=== PATIENT | female | born 1980 | race Caucasian/White ===

== ENCOUNTER 2017-07-10 12:30 | Emergency (ER) | payer OTHER, SELFPAY ==
[2017-07-10] VITALS (8 sets, daily range): BP systolic 108–157; BP diastolic 71–99; PULSE 63–81; RESP 15–23; TEMP 36.6; O2SAT 97–100; BMI 45.8
--- NOTE | 2017-07-10 12:38 | RAD_ITS ---
STUDY: X-RAY - RIGHT WRIST REASON FOR EXAM: Female, 37 years old. Right wrist pain after fall TECHNIQUE: 3 view(s) of the wrist were obtained. COMPARISON: None. FINDINGS: Comminuted distal radius fracture with mild angulation and no significant displacement. Soft tissue swelling is noted RAD/Wrist min 3 Views IMPRESSION: As above Electronically Signed: Bowen Gilbert DO at 13:21 EST Tel , Service support ,
--- NOTE | 2017-07-10 12:40 | ED.DCSUM_ITS ---
- ER Visit Summary Date of Service: 07/10/17 Chief Complaint: Right wrist trauma History of Present Illness: The patient is a 37 F presenting with acute onset right wrist pain after falling onto her outstretched right upper extremity when she tripped outside. She denies any other injuries. Pain was sudden onset and moderate in severity. She is left-hand dominant. She denies paresthesias. Physical Examination: She has tenderness on palpation of her right distal radius. The skin is intact. Normal distal neurovascular examination Test Results: Plain films revealed a dorsally displaced distal radius fracture that was mildly angulated. She had a normal distal neurovascular examination. Emergency Department Course and Treatment: The case was discussed with Dr. Orion Akers who reviewed the images and recommended attempt at reduction and follow-up on Tuesday for surgical planning. We discussed options including a hematoma block and she did not want a hematoma block and asked to be procedurally sedated. The risks and benefits of this were discussed and written informed consent was obtained. The risk of nerve damage and also an incomplete reduction were discussed. She was then sedated using propofol and a closed reduction was performed but I was unable to get complete reduction as the fracture fragment appeared to be getting caught on the more proximal component. The repeat images reveal better alignment on the repeat images but still not complete. Her pain did improve and she still has a normal distal neurovascular examination after the splint was placed and she was observed for an hour. Treatment Plan: Follow-up with orthopedics in 2 days, return if worse Disposition: Home in stable condition Impression: Initial encounter for dorsally displaced right distal radius fracture, closed after mechanical fall This note was generated with [employer] dictation software. It may contain incorrect words, spelling, and punctuation that were not noted in review of the chart prior to signing ED Disposition - Plan for ED Patient: Chief Complaint: Upper Extremity Injury Instructions: ED Fx Colles Wrist Redu Requ Prescriptions: Oxycodone [Oxyir] 5 mg PO Q4H PRN PRN 3 Days #18 tablet PRN Reason: Pain Referrals: Orion Akers DO [STAFF PHYSICIAN] - 2 Days (on Tuesday)
[2017-07-10] MEDS: oxyCODONE 5 MG Tablet PO ×2 (12:49→15:21)
--- NOTE | 2017-07-10 13:57 | RAD_ITS ---
STUDY: X-RAY - RIGHT WRIST REASON FOR EXAM: Female, 37 years old. Post reduction TECHNIQUE: 2 view(s) of the wrist were obtained. COMPARISON: Plain films earlier FINDINGS: No significant change in distal radius fracture with mild angulation. Overlying cast in place RAD/Wrist 2 Views IMPRESSION: As above Electronically Signed: Bowen Gilbert DO at 15:33 EST Tel , Service support ,
--- NOTE | 2017-07-10 13:59 | RAD_ITS ---
STUDY: X-RAY - RIGHT WRIST REASON FOR EXAM: Female, 37 years old. Closed Reduction TECHNIQUE: 2 view(s) of the wrist were obtained. COMPARISON: None. FINDINGS: Fluoroscopy images obtained. Distal radius fracture is noted with mild angulation. No significant change from earlier RAD/Wrist 2 Views IMPRESSION: As above Electronically Signed: Bowen Gilbert DO at 15:37 EST Tel , Service support ,
[2017-07-10] MEDS: Propofol 200 MG/20 ML Vial IV BOLUS (14:30)
== END 2017-07-10 15:22 | disposition home or self-care (01) ==
PROVIDERS: Emergency Provider Emergency Medicine; Family Provider Family Medicine; PCP Family Medicine
DX: S52.501A Unspecified fracture of the lower end of right radius, initial encounter for closed fracture (principal); W01.0XXA Fall on same level from slipping, tripping and stumbling without subsequent striking against object, initial encounter; Y93.9 Activity, unspecified; Y92.9 Unspecified place or not applicable; Y99.9 Unspecified external cause status
CPT/HCPCS: 25605; 73100; 73110; 76000; 96374; 99283; J7030; A4216

== ENCOUNTER → 2017-07-16 06:46 | Outpatient (CLI) | payer OTHER, SELFPAY ==
[2017-07-10 13:43] VITALS: BP 137/88; BP 145/96
[2017-07-12 12:43] VITALS: BP 124/84; BMI 45.8
--- NOTE | 2017-07-16 06:54 | CT_ITS ---
STUDY: CT RIGHT WRIST REASON FOR EXAM: Female, 37 years old. Fracture RADIATION DOSAGE (If Supplied By Facility): CTDI vol = (24.58) mGy, DLP = (474.56 mGycm) TECHNIQUE: The patient was scanned in a multi detector CT scanner. High resolution transaxial imaging was performed. Sagittal and coronal images were reconstructed. Individualized dose optimization techniques were used for this CT. COMPARISON: X-ray 07/10/2017 FINDINGS: There is comminuted fracture at the distal radius. There is posterior displacement one third shaft width. There is mild involvement of the dorsal articular surface (image 33, 32, 31/63 sagittal recon). There is no osseous destruction. The ulna is intact. The carpal bones are intact. The joint spaces are well-maintained. There is no periarticular soft tissue mass. CT/Extremity Upper without Contra IMPRESSION: Comminuted fracture of the distal radius with dorsal displacement and involvement of the dorsal articular surface Electronically Signed: Silverio Akbar MD at 11:34 EST Tel , Service support ,
== END ==
PROVIDERS: Family Provider Family Medicine; PCP Family Medicine; Visit Provider Orthopaedic Surgery
DX: S52.501A Unspecified fracture of the lower end of right radius, initial encounter for closed fracture (principal); X58.XXXA Exposure to other specified factors, initial encounter; Y93.9 Activity, unspecified; Y92.9 Unspecified place or not applicable; Y99.9 Unspecified external cause status
CPT/HCPCS: 73200

== ENCOUNTER 2017-07-20 12:15 | Day surgery (SDC) | payer OTHER, SELFPAY ==
[2017-07-10 13:43] VITALS: BP 137/88; BP 145/96
[2017-07-12 12:43] VITALS: BP 124/84; BMI 45.8
[2017-07-20] VITALS (11 sets, daily range): BP systolic 128–145; BP diastolic 55–102; PULSE 61–95; RESP 16–20; TEMP 36.4–36.9; O2SAT 90–100; BMI 47.8
[2017-07-20 12:41] LABS: Hematocrit 33.1 % (37-47); Hemoglobin 10.2 g/dl (12.0-15.0); Mean Corp Hgb Conc 30.8 g/gl (32-36); Mean Corpuscular Hgb 26.4 pg (27.0-32.0); Mean Corpuscular Volume 85.5 fL (81-99); Mean Platelet Vol. 10.5 fl (6.2-12.0); Platelet Count 289 K/mm3 (150-450); RBC Distribution Width CV 15.2 % (11.6-14.6); RBC Distribution Width SD 46.3 fl (35.1-43.9); Red Blood Count 3.87 M/mm3 (4.2-5.4); White Blood Count 5.3 K/mm3 (4.4-11.0)
[2017-07-20 12:45] LABS: Scan Indicated on CBC? Y/N NO
[2017-07-20 12:48] LABS: International Normalized Ratio 1.1; Partial Thromboplast Time 30.7 Seconds (24.1-36.2); Prothrombin Time (Protime)PT. 13.4 SECONDS (11.7-14.9)
[2017-07-20 12:58] LABS: AST(SGOT) 19 U/L (15-37); Alanine Aminotransfer ALT/SGPT 34 U/L (13-56); Albumin, Serum 3.5 g/dL (3.2-5.0); Alkaline Phosphatase 87 U/L (45-117); Bilirubin, Direct 0.11 mg/dL (0.00-0.30); Globulin 4.2 g/dL (2.2-4.2); Protein, Total 7.7 g/dL (6.4-8.2)
[2017-07-20] MEDS: Cefazolin 2 GM in 0.9% Normal Saline 100 ML IV (15:45)
--- NOTE | 2017-07-20 15:51 | PCM.DC.ORTHO ---
Discharge Diet: No Restrictions - leave dressing intact; ice,elevate and move fingers as much as tolerated, call with increased pain, numbness, tingling, or if other issues arise, follow up in 2 weeks in office Discharge Activity: May Not Drive May shower in (days): 1 Ice area for (Minutes): 20 - Every hour while awake. Weight Bearing Status: Weight bearing as tolerated Keep extremity elevated above heart level: Operative Extremity Call your doctor if your incision/area has: Continuous Slow Oozing, Sudden Increased Bleeding, Increased Pain/ Swelling, Increased Redness, Foul Smelling Discharge Call your doctor if you observe: Fever of 101 or Higher, Coldness, Increased Pain, Numbness or Tingling, Change in Color, Calf discomfort Allergies/Adverse Reactions: Allergies No Known Allergies Allergy (Verified 07/18/17 08:08) Medications to take at Discharge Zolpidem Tartrate [Ambien] 10 mg PO QHS 10/20/16 oxycodone-acetaminophen 5 mg-325 mg tablet 2 tab PO Q6H PRN 7 Days #56 tab 07/14/17 l-Norgest/E.estradiol-E.estrad [Seasonique 0.15-0.03-0.01 Tab] 1 each PO DAILY 07/18/17 Oxycodone HCl/Acetaminophen [Percocet 5/325] 1 - 2 tablet PO Q6H PRN PRN 5 Days #30 tablet 07/20/17 The following prescriptions were given: Oxycodone HCl/Acetaminophen [Percocet 5/325] 1 - 2 tablet PO Q6H PRN PRN 5 Days #30 tablet PRN Reason: Pain Primary Care Physician: Joseph Sánchez MD [Primary Care Provider] - Please Follow Up With: Hali Freeman, - [phone]
--- NOTE | 2017-07-20 15:52 | OP.PCM_ITS ---
Problem List (1) Intra-articular fracture of distal end of radius with volar angulation Status: Acute Report of Operation Date of Procedure: 07/20/17 Pre-Operative Diagnosis: right distal radius intraarticular fracture Post-Operative Diagnosis: same Surgery/Procedure Performed:: orif right intraarticular distal radius Type of Anesthesia:: General Anesthesiologist: Jose Daniel Estimated Blood Loss (mL): minimal Fluids Replaced: 1200ml lr Description of Procedure: Note Patient is a 37-year-old female who fell onto right outstretched hand. Patient immediate pain and deformity was seen in the emergency room x-rays showed a discharge to distal radius fracture CT scan confirmed a intra-articular extension dorsally. This and discussion with family whether or not to proceed with closed reduction casting versus pinning versus plating. Family elected to proceed with right distal radius reduction internal fixation. Risks benefits and alternatives surgery discussed with patient. Risks including but not limited to blood loss, blood clot, infection, neurovascular injury, failure procedure, loss of life and loss of limb. Patient is aware would like proceed with right distal radius repair is indicated. Operative note Patient seen and examined preoperative holding area. Right hand was. Patient was brought to the operating room placed supine on the operating table. Sign, anesthesia, antibiotics were administered. Right arm was prepped and draped in usual sterile fashion with tourniquet around her upper arm. The marked out our incision for our distal radius fracture fixation. Palpated her FCR and the incision was made on top of that. Right arm was elevated exsanguinated and pressure was raised to pressure of 250 torr. Timeout was performed. We then used a 15 blade cut the skin dissect down with tenotomy syllable of the FCR fascia FCR fascia was then released and weeks and dissected down with tenotomy syllable of the pronator quadratus pronator quadratus was released sharply from its radial edge with a Tar Heel elevator. We then were able to visualize our fracture site. We then used combination of a Tar Heel and a dental pick to remove any callus that was there and irrigated with copious amounts of sterile saline. We then reduced the fracture picked out our plate. We placed a 2.4 LCDCP plate and then placed K wires across the plate and fixating it in an appropriate proximal distal and medial lateral planes. We then placed 1 screw was a 14 mm to 4 screw proximally to fixate the plate to the bone and then placed in place and drilled accordingly distal screws into the radial styloid as well as into the ulnar aspect of the distal radius. These were initially placed 2 cortical screws and then refill the remaining 4 screws with locking screws. We then moved back to her proximal screw and placed our remaining 214 mm 2.4 cortical screws in the proximal plate. Please note that throughout the case we took multiple fluoroscopy images in both AP lateral pronated and 20? AP lateral planes to ensure that we had good reduction of the fracture site and no intra-articular extension of the screws which we did not have. The incision was irrigated with copious amounts of sterile saline. The pronator quadratus was placed on placed on top of the plate the skin with subcutaneous was closed with 2-0 Vicryl and the skin with running 4-0 Monocryl. Dressings were applied. The tourniquet was deflated for total working time of 1 hour. He was transferred to the recovery room in stable condition. The patient tolerated procedure well there are no comp occasions. Next Postoperative note Nonweightbearing right upper extremity Hospital has pharmacy has prescriptions next Call with increased numbness tingling or further issues arise this was discussed at length with family Follow-up in 2 weeks next Call with concerns This note was generated with [employer] dictation software. It may contain incorrect words, spelling, and punctuation that were not noted in checking the note before signing. We placed 2.4 variable angle locking screws placed 112 mm, 140 mm, 180 mm, and 122 mm screws we placed to 2.4 cortical screws there were 22 mm in length distally and proximally in the plate we placed to 14 mm 2.7 cortical screws and 116 mm cortical screw.
--- NOTE | 2017-07-20 16:05 | RAD_ITS ---
STUDY: X-RAY - RIGHT WRIST REASON FOR EXAM: Female, 37 years old. Fracture TECHNIQUE: 2 view(s) of the wrist were obtained. COMPARISON: 07/10/2017 FINDINGS: There is fixation at the distal radius. RAD/Wrist min 3 Views IMPRESSION: ORIF distal radius Electronically Signed: Silverio Akbar MD at 21:09 EST Tel , Service support ,
[2017-07-20] MEDS: Mupirocin Ointment 22gm Tube 1 APPLIC (17:12)
[2017-07-20] MEDS: HYDROcodone Bitartrate/Apap 5/325 Tablet PO (19:02)
== END 2017-07-20 20:12 | disposition home or self-care (01) ==
LOC: SDC 12:16 → AC 12:17
PROVIDERS: Anesthesiology; Family Provider Family Medicine; PCP Family Medicine; Visit Provider Orthopaedic Surgery
PROC: (CPT 25608; principal; 2017-07-20 13:50)
DX: S52.571A Other intraarticular fracture of lower end of right radius, initial encounter for closed fracture (principal); W01.0XXA Fall on same level from slipping, tripping and stumbling without subsequent striking against object, initial encounter; Y93.01 Activity, walking, marching and hiking; Y92.9 Unspecified place or not applicable; Y99.9 Unspecified external cause status; D64.9 Anemia, unspecified; Z79.899 Other long term (current) drug therapy; Z98.84 Bariatric surgery status; Z98.51 Tubal ligation status
CPT/HCPCS: 25608; 73110; 76000; 80076; 85027; 85610; 85730; J7120; J2405

== ENCOUNTER → 2017-08-02 12:54 | Outpatient (CLI) | payer OTHER, SELFPAY ==
--- NOTE | 2017-08-02 12:58 | RAD_ITS ---
STUDY: X-RAY - RIGHT WRIST REASON FOR EXAM: Fracture follow-up. TECHNIQUE: 3 view(s) of the wrist were obtained. COMPARISON: Fluoroscopic images 07/20/2017. FINDINGS: There is an orthopedic plate and screws transfixing a distal radial fracture in anatomic alignment and position. Normal radiocarpal articulation. Normal distal radioulnar articulation. Normal carpal bones. Normal carpal articulations. Normal carpometacarpal articulation of the thumb. Normal second through fifth carpometacarpal articulations. Normal visualized metacarpal bones. The soft tissue structures are unremarkable. RAD/Wrist min 3 Views IMPRESSION: ORIF of right distal radial fracture. Electronically Signed: Sina Mejia MD at 13:16 EST Tel , Service support ,
== END ==
PROVIDERS: Family Provider Family Medicine; PCP Family Medicine; Visit Provider Orthopaedic Surgery
DX: S52.579A Other intraarticular fracture of lower end of unspecified radius, initial encounter for closed fracture (principal); X58.XXXA Exposure to other specified factors, initial encounter; Y93.9 Activity, unspecified; Y92.9 Unspecified place or not applicable; Y99.9 Unspecified external cause status
CPT/HCPCS: 73110

== ENCOUNTER → 2017-09-08 08:05 | Outpatient (CLI) | payer OTHER, SELFPAY ==
--- NOTE | 2017-09-08 08:05 | RAD_ITS ---
STUDY: X-RAY - RIGHT WRIST REASON FOR EXAM: Postop. TECHNIQUE: 3 view(s) of the wrist were obtained. COMPARISON: Radiographs 08/02/2017. FINDINGS: There is an orthopedic plate and screws transfixing a distal radial fracture in anatomical alignment and position. Normal radiocarpal articulation. Normal distal radioulnar articulation. Normal carpal bones. Normal carpal articulations. Normal carpometacarpal articulation of the thumb. Normal second through fifth carpometacarpal articulations. Normal visualized metacarpal bones. The soft tissue structures are unremarkable. RAD/Wrist min 3 Views IMPRESSION: ORIF of distal radial fracture without interval change. Electronically Signed: Sina Mejia MD at 8:55 EDT Tel , Service support ,
== END ==
PROVIDERS: Family Provider Family Medicine; PCP Family Medicine; Visit Provider Orthopaedic Surgery
DX: S52.579A Other intraarticular fracture of lower end of unspecified radius, initial encounter for closed fracture (principal); X58.XXXA Exposure to other specified factors, initial encounter; Y93.9 Activity, unspecified; Y92.9 Unspecified place or not applicable; Y99.9 Unspecified external cause status
CPT/HCPCS: 73110

== ENCOUNTER 2017-11-03 13:00 | Outpatient (RCR) | payer OTHER, SELFPAY ==
--- NOTE | 2017-08-02 15:24 | HP.OTEVAL ---
Patient's Visit Information TAMELA HERNANDEZ is a 37 year old F, referred to Occupational Therapy by Hali Freeman DO,, with a diagnosis of ORIF R wrist. Date of Evaluation: 08/02/17 Occupational Therapist: Sara Faust - Subjective Subjective: Arrived as walk-over Pt. from [facility]. Tamela noted that she fell on ice while at [employer]. Noted she recently, prior to session, had cast removed. 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 Notes second time breaking R wrist and she is R hand dominant. - Pain Right Wrist Unrated Pain Intensity Range: Unrated - Objective Objective/Observation: Edema present in fingers. Decreased ROM and strength in R wrist. Scar healing and slight opening and cover with steri strips at this time. - ROM Wrist: flex R 0-25, L 0-87; ext R 0-0, L 0-57 MP: R 2-5th 9-49, 7-42, 10-52, 7, 36; L WFL PIP: R 2-5th 10-49, 12-53, -1, 61, L -11-75; L WFL - Strength Vocational Rehabilitation Counselor: R unable at this time; L 71 - Edema Proximal Phalanx: slight edema present - Sensation Sensation Comments: WFL; denies numbness or tingling at this time. - Goals Goal:: Pt. to increase R credit collections manager to that of L hand 4/5 trials 80% of the time to promote increased ability to manipulate FMC and self-care tasks by d/c. Goal:: Pt. R wrist and hand to be WFL as compared to L wrist 2/3 trials 75% of the time by d/c. Goal:: Pt. to have no more than 1/10 pain when completing ADL/IADls 4/5 trials 80% of the time to promote increased (I) and ability to return to PLOF by d/c. Goal:: Pt. to be (I) to return to all ADL/IADls 4/5 trials 80% of the time to promote increased (i) and decrease need for assistance by d/c. Goal:: Pt. to be (I) to complete HEP to promote ROM and strength 4/5 trials 8-% of the time to promote increased (I) and ability to return to PLOF by d/c. Goal:: Pt. to be mod I to complete splint schedule (24 hours and will taper off with healing time) as well as skin integrity issues 4/5 trials 80% of the time by d/c. - Rehabilitation General Assessment: Pt., Tamela, arrived from [facility]. Presents with decreased ROM, strength, and ability to complete FMC, b hand coordinationa nd manipulation tasdks needed for ADL/IADLS. Tamela had plate and 7-8 screws per Pt. report. SHe will recieve OT to promote increased return to PLOF for ADL/IADLs. Rehabilitation Potential: Good - Anticipated Interventions Anticipated Interventions: A/AAROM/PROM, Strengthening, Edema Control, Scar Care, Massage, Desensitization, Modalities, Fine Motor Coord/[place], ADL Training, Caregiver Training, Home Program - Visit Plan Frequency: 2x /Week Duration: 4-6 Weeks General Plan: Tamela to complete OT for increased ROM, Strength, decreased edema, and promoting return to PLOF for all ADL/IADLs. TEXT: Thank you for the opportunity to evaluate your patient. For Medicare and Medicare HMO plans, please review the plan of care and approve it. It will need to be FAXED BACK to us at [phone] for Medicare purposes. Please let me know if there are questions or concerns regarding this plan of care. Physician Signature: Date:
--- NOTE | 2017-11-03 13:46 | HP.OTDCSUM_ITS ---
HP - OT D/C Summary It has been my pleasure to treat DOV HERNANDEZ under orders from Hali Freeman DO, for the diagnosis of ORIF R wrist for a total of 13 visit(s). Please see the following information for a summary of their discharge status. - Overall Improvement % Improvement: 90 - Objective Objective/Function: Reassessment completed on this date. Completed ROM measurements: wrist flexion R 0-66, L WFL; ext R 0-46, L WFL; radial deviation R 0-15, L WFL; ulnar deviation R 0-28, L WFL; supination R 0-64, L WFL. Strength measurements are as follows: publication designer R 45, L 49; lateral R 14, L 15; thripod R 11, L 14; tip pinch R 10, L 10 lbs. Completed sensory testing of R hand and results are as follows: 2nd 2.83, 3rd 2.83, 4th 2.83, 5th 2.83, thumb 2.83 and 2.44 over CTS area at base of palm. L sensation is WNL. A score of normal is 2.83 but increased sensitivity over palm noted at 2.44. Completed 9 hole pegboard test and results are as follows: R 21.96 s, L 18.16 s. She has progressed in all measurements since inital evaluation. - Goals Patient Goals: Regain Mobility, Regain Strength, Decrease Pain, Return to Work, Decrease Swelling/Stiffness, Improve Fine Motor Skills, Use Hand/Wrist/Arm Normally Again, Sleep Better, Increase ROM, Be More Independent in ADLS, Decrease Sensitivity, Resume Former Household Responsibilities (Cooking,Cleaning ,Yard, etc.), Resume Hobbies Goal:: Pt. to increase R publication designer to that of L hand 4/5 trials 80% of the time to promote increased ability to manipulate FMC and self-care tasks by d/c. Goal:: Pt. R wrist and hand to be WFL as compared to L wrist 2/3 trials 75% of the time by d/c. Goal:: Pt. to have no more than 1/10 pain when completing ADL/IADls 4/5 trials 80% of the time to promote increased (I) and ability to return to PLOF by d/c. Goal:: Pt. to be (I) to return to all ADL/IADls 4/5 trials 80% of the time to promote increased (i) and decrease need for assistance by d/c. Goal:: Pt. to be (I) to complete HEP to promote ROM and strength 4/5 trials 8-% of the time to promote increased (I) and ability to return to PLOF by d/c. Goal:: Pt. to be mod I to complete splint schedule (24 hours and will taper off with healing time) as well as skin integrity issues 4/5 trials 80% of the time by d/c. - Plan Plan: Dale completed last scheduled appointment today. She will be d/c'd on this date. She has progressed. Palm is sensitive. - D/C Information If there are questions or concerns regarding this patient's occupational therapy , please fell free to call me at [phone]. Thank you for the referral of this patient. Sincerely, Sara Faust
== END 2017-11-03 19:00 | disposition home or self-care (01) ==
LOC: OT 13:00
PROVIDERS: Family Provider Family Medicine; PCP Family Medicine; Visit Provider Orthopaedic Surgery
DX: Z98.890 Other specified postprocedural states (principal)
CPT/HCPCS: 97110; 97140; 97166; 97530; 97760; 97763